=== PATIENT | male | born 1950 | race Caucasian/White ===

== ENCOUNTER 2017-04-01 14:20 | Emergency (ER) | payer OTHER ==
[~2017-04-01] VITALS: Ht 180.3 cm; Wt 101.6 kg
[~2017-04-01 14:20] MED LIST: AMARYL4 MG PO; ASPIR 8181 M1 PO; CALCIUM 500 +1 EACH PO; CEFTIN500 MG PO; CHILD ASPIRIN81 M1 PO; COZAAR25 MG PO; JARDIANCE10 MG PO; SIMVASTATIN40 MG PO; TRAMADOL HCL50 MG PO; TRICOR145 MG PO; TYLENOL WITH C1 EACH PO
[2017-04-01 14:50] LABS: POINT-OF-CARE METER ID UU13113702
[2017-04-01 15:09] LABS: HEMATOCRIT 40.4 % (38.0-50.0); MCH 29.1 PG (29.0-34.0); MCHC 33.2 G/DL (30.0-36.0); MCV 87.6 FL (86-99); PLATELET COUNT 260 K/uL (156-360); RBC DIS.WIDTH-SD 41.4 % (39-53); RED BLOOD COUNT 4.61 M/uL (4.00-5.50); WHITE BLOOD COUNT 11.5 K/uL (4.1-10.2)
[2017-04-01 15:22] LABS: CHLORIDE 107 mEq/L (99-109); POTASSIUM 4.8 mEq/L (3.7-5.4); SODIUM 141 mEq/L (136-147)
[2017-04-01 15:24] LABS: GLUCOSE 176 mg/dL (70-99)
[2017-04-01 15:26] LABS: ANION GAP 9 MEQ/L (2-14)
[2017-04-01 15:28] LABS: GFR ESTIMATE (CALCULATED) > 59 mL/min/
[2017-04-01 15:29] LABS: UREA NITROGEN (BUN) 12 mg/dL (9-23)
[2017-04-01] MEDS ORDERED: DELTASONE20 M1 PO (17:43)
[2017-04-01 18:08] VITALS: BP 153/86
[2017-04-03 12:28] LABS: LYME DISEASE SEROLOGY SCREEN NEGATIVE (NEGATIVE)
== END 2017-04-01 18:12 | disposition home or self-care (01) ==
LOC: EME → EDBD 14:20 → EME 14:20
PROVIDERS: Emergency Medicine
DX: G51.0 Bell's palsy (principal); R51 Headache; I10 Essential (primary) hypertension; E78.5 Hyperlipidemia, unspecified; E11.9 Type 2 diabetes mellitus without complications; Z79.84 Long term (current) use of oral hypoglycemic drugs; Z79.82 Long term (current) use of aspirin
CPT/HCPCS: 70450; 80048; 82948; 85027; 86618; 99281; 99285; J7512

== ENCOUNTER 2017-04-22 12:02 | Emergency (ER) | payer OTHER ==
[~2017-04-22] VITALS: Ht 180.3 cm; Wt 98.9 kg
[~2017-04-22 12:02] MED LIST changes: +DELTASONE20 M1 PO
[2017-04-22 14:15] LABS: EOSINOPHIL (%) 2.2 % (0-5); EOSINOPHIL COUNT 0.2 K/uL (0-0.3); HEMATOCRIT 38.3 % (38.0-50.0); IMMATURE GRANULOCYTE (%) 0.4 % (0.0-0.7); INSTRUMENT ABS NEUTROPHIL CT 3.8 K/uL; LYMPHOCYTE COUNT 2.3 K/uL (1.0-2.8); MCHC 32.9 G/DL (30.0-36.0); MCV 88.2 FL (86-99); MEAN PLAT.VOLUME 9.7 uM^3 (9.0-12.4); MONOCYTE (%) 8.1 % (3-12); MONOCYTE COUNT 0.6 K/uL (0-0.8); NEUTROPHIL (%) 55.6 % (45-76); NEUTROPHIL COUNT 3.8 K/uL (1.8-6.4); PLATELET COUNT 218 K/uL (156-360); RBC DIS.WIDTH-CV 12.8 % (11.8-14.6); RBC DIS.WIDTH-SD 41.3 % (39-53); RED BLOOD COUNT 4.34 M/uL (4.00-5.50); WHITE BLOOD COUNT 6.8 K/uL (4.1-10.2)
[2017-04-22 14:27] LABS: CHLORIDE 108 mEq/L (99-109); POTASSIUM 4.3 mEq/L (3.7-5.4); SODIUM 140 mEq/L (136-147)
[2017-04-22 14:29] LABS: GLUCOSE 121 mg/dL (70-99)
[2017-04-22 14:30] LABS: ANION GAP 11 MEQ/L (2-14)
[2017-04-22 14:31] LABS: TOTAL BILIRUBIN 0.6 mg/dL (0.0-1.0)
[2017-04-22 14:32] LABS: ALKALINE PHOSPHATASE 50 IU/L (3-129)
[2017-04-22 14:33] LABS: GFR ESTIMATE (CALCULATED) > 59 mL/min/
[2017-04-22 14:34] LABS: UREA NITROGEN (BUN) 9 mg/dL (9-23)
[2017-04-22 14:38] LABS: ERTH.SED.RATE < 1 MM/HR (0-20)
[2017-04-22] MEDS ORDERED: FIORICET 50-301 EACH PO (18:29)
[2017-04-22 19:16] VITALS: BP 138/82
== END 2017-04-22 19:17 | disposition home or self-care (01) ==
LOC: EME 12:02
PROVIDERS: Emergency Medicine
DX: R51 Headache (principal); R09.89 Other specified symptoms and signs involving the circulatory and respiratory systems; R41.0 Disorientation, unspecified; G51.0 Bell's palsy; I10 Essential (primary) hypertension; E78.5 Hyperlipidemia, unspecified; E11.9 Type 2 diabetes mellitus without complications; Z79.84 Long term (current) use of oral hypoglycemic drugs; Z79.82 Long term (current) use of aspirin
CPT/HCPCS: 70551; 80053; 85025; 85651; 99281; 99284